=== PATIENT | female | born 1985 | race American Indian/Alaskan Native ===

== ENCOUNTER 2019-04-27 00:22 | Observation (INO) | payer BC ==
[2019-04-27] MEDS ORDERED: NITRO-BID 2% TP ONE (01:19)
[2019-04-27] MEDS ORDERED: MORPHINE IV ONE (01:19)
[2019-04-27] MEDS ORDERED: ZOFRAN IV ONE (01:19)
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
[2019-04-27 01:45] LABS: Basophils % (Auto) 0.5 % (0.0-1.8); Eosinophils # (Auto) 0.2 K/mm3 (0.0-0.4); Eosinophils % (Auto) 2.3 % (0.0-4.3); Hemoglobin 14.1 gm/dl (10.1-14.3); Lymphocytes # (Auto) 2.4 K/mm3 (1.2-5.4); Lymphocytes % (Auto) 32.2 % (13.4-35.0); Mean Corpuscular HGB Conc 34 % (30-34); Mean Corpuscular Volume 98 fl (79-97); Monocytes # (Auto) 0.6 K/mm3 (0.0-0.8); Monocytes % (Auto) 7.8 % (0.0-7.3); Platelet Count 259 K/mm3 (140-440); Red Blood Count 4.19 M/mm3 (3.65-5.03); Red Cell Distribution Width 13.5 % (13.2-15.2)
[2019-04-27 01:57] LABS: INR 0.92 (0.87-1.13)
[2019-04-27 02:11] LABS: BUN/Creatinine Ratio 7; Blood Urea Nitrogen 6 mg/dL (7-17); Calcium 9.1 mg/dL (8.4-10.2); Hemolysis Index 20
--- NOTE | 2019-04-27 02:15 | Cat Scan Report ---
PROCEDURE: CT HEAD/BRAIN WO CON TECHNIQUE: Computerized tomography of the head was performed without contrast material. CT DOSE LENGTH PRODUCT: 920.5 mGycm HISTORY: headache COMPARISONS: None . FINDINGS: Skull and scalp: Normal . Paranasal sinuses: Normal . Ventricles and subarachnoid spaces: Normal . Cerebrum: No evidence of hemorrhage, acute infarction or mass . Cerebellum and brainstem: No evidence of hemorrhage, acute infarction or mass . Vasculature: Normal . Other: None . ASPECTS: 10 IMPRESSION: There is no evidence of an acute intracranial process. . This document is electronically signed by Sheri Vigil DO., April 27 2019 02:12:49 AM ET
[2019-04-27] MEDS ORDERED: ASPIRIN PO ONE (02:19)
[2019-04-27] MEDS ORDERED: PROVENTIL IH PRN (02:44)
[2019-04-27] MEDS ORDERED: SODIUM CHLORIDE FLUSH SYRINGE 10 ML IV PRN (02:44)
[2019-04-27] MEDS ORDERED: MORPHINE IV PRN (02:44)
[2019-04-27] MEDS ORDERED: ZOFRAN IV PRN (02:44)
[2019-04-27] MEDS ORDERED: NITROSTAT SL PRN (02:46)
[2019-04-27] MEDS ORDERED: DILAUDID IV PRN (02:46)
--- NOTE | 2019-04-27 02:46 | XRay Report ---
PROCEDURE: XR CHEST 1V AP TECHNIQUE: Chest radiograph single view. HISTORY: chest pain COMPARISONS: None . FINDINGS: Heart: Normal. Mediastinum/Vessels: Normal. Lungs/Pleural space: Normal. Bony thorax: No acute osseous abnormality. Life support devices: None. IMPRESSION: No acute cardiopulmonary abnormality. This document is electronically signed by Johnathan Lopez MD., April 27 2019 02:44:30 AM ET
[2019-04-27] MEDS ORDERED: APRESOLINE IV PRN (03:11)
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
[2019-04-27] MEDS ORDERED: NACL 0.9% 1000 ML 1,000 ML IV SCH ×2 (04:00)
[2019-04-27 05:02] LABS: Chol/HDL Ratio 4.06 %
[2019-04-27 05:31] LABS: Bilirubin,Urine NEG (Negative); Blood,Urine NEG (Negative); Color,Urine Straw (Yellow); Protein,Urine <15 mg/dL mg/dL (Negative); RBC,Urine < 1.0 /HPF (0.0-6.0); Urobilinogen,Urine < 2.0 mg/dL (<2.0); WBC,Urine < 1.0 /HPF (0.0-6.0)
[2019-04-27] MEDS: TYLENOL PO PRN ×2 (08:00→14:05)
[2019-04-27] MEDS ORDERED: SODIUM CHLORIDE FLUSH SYRINGE 10 ML IV SCH (10:00)
[2019-04-27] MEDS ORDERED: EFFEXOR XR PO SCH (10:00)
[2019-04-27] MEDS ORDERED: EFFEXOR 75 MG PO SCH (10:00)
[2019-04-27] MEDS ORDERED: HEPARIN SUB-Q SCH (10:00)
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
[2019-04-27 12:08] VITALS: BP 99/74
--- NOTE | 2019-04-28 00:35 | Treadmill Report ---
EXERCISE STRESS TEST REPORT REASON FOR TEST: Chest pain. The patient exercised for 7 minutes and 13 seconds of a Lonnie protocol, reaching stage 3 and achieving 8 mets. Peak heart rate was 148 beats per minute. There was no chest pain. Test was stopped for fatigue. Baseline ECG was sinus rhythm. With exercise, there were no ST changes of ischemia. No significant dysrhythmias is noted. CONCLUSION: 1. Average exercise capacity. 2. No chest pain. 3. No ST changes of ischemia. 4. No significant dysrhythmias. This is a negative exercise ECG test. JOB# [id number] RAJANI/NTS
[2019-04-28] MEDS ORDERED: BABY ASPIRIN PO SCH (10:00)
== END 2019-04-27 15:45 | disposition home or self-care (01) ==
LOC: ED 00:22 → 4A 02:44
PROVIDERS: ADMIT Internal Medicine; ATTEND Internal Medicine
DX: R07.89 Other chest pain (principal); I24.9 Acute ischemic heart disease, unspecified; I10 Essential (primary) hypertension; E86.0 Dehydration; F41.0 Panic disorder [episodic paroxysmal anxiety]; R74.8 Abnormal levels of other serum enzymes; Z79.82 Long term (current) use of aspirin; Z79.899 Other long term (current) drug therapy
CPT/HCPCS: 36415; 70450; 71045; 80048; 80061; 81001; 82550; 82553; 84484; 84703; 85025; 85610; 93005; 93010; 93017; 96361; 96372; 96374; 96375; 96376; 99284; G0378; J1644; J2270; J2405; J7030